=== PATIENT | female | born 1950 | race Caucasian/White ===

== ENCOUNTER 2025-01-24 17:45 | Inpatient (IN) | payer MEDICARE, MEDICAID ==
[~2025-01-24] VITALS: Ht 160 cm; Wt 69.3 kg
--- NOTE | 2025-01-24 18:36 | ED.PDOC ---
History of Present Illness HPI Comments 74-year-old female came to ER for generalized weakness. Patient denies any medical problems, admits that she has not been seeing any doctor at all. States at about 6am this morning, she started having generalized weakness, associated with bouts of nausea and vomiting, right-sided chest pains, right sided abdo lori pain, right-sided headaches, dizziness and shortness of breath. Blood pressure upon arrival was 87/60 mm Hg Chief Complaint: Weakness Time Seen by MD: 18:34 Reviewed Notes: Nurses Notes Allergies: Coded Allergies: NO KNOWN ALLERGIES (Unverified , 01/24/25) Information Source: Patient Mode of Arrival: Ambulatory Severity: Moderate Timing: Hours Duration: Since onset Prehospital treatment: None Review of Systems REVIEW OF SYSTEMS: No fever, no chills, or fatigue HEENT: No sore throat, no earache, no congestion, no neck pain. Cardiac: (+) chest pain. No palpitations. Lungs: (+) shortness of breath, no cough. GI: (+) nausea, (+) vomiting, no diarrhea, no constipation, (+) abdominal pain : No dysuria, frequency, or urgency. No hematuria. Musculoskeletal: No joint pain , no joint swelling, no extremity edema. Skin: No rash, no itching. Neuro: (+) headache, (+) dizziness, (+) weakness Vital Signs Vital Signs Date Time Temp Pulse Resp B/P (MAP) Pulse Ox O2 Delivery O2 Flow Rate FiO2 01/24/25 22:00 77 19 101/52 (68) 95 01/24/25 20:20 98.4 01/24/25 20:00 Room Air* 0 21 Physical Exam General: Awake, alert and oriented. No acute distress. Skin: Skin in warm, dry and intact. Appropriate color for ethnicity. Nailbeds pink with no cyanosis. HEENT: The head is normocephalic and atraumatic. Conjunctivae are clear without exudates or hemorrhage. Sclera is non-icteric. EOM are intact. No signs of nystagmus. Eyelids are normal in appearance without swelling or lesions. Oral mucosa is pink and moist Neck: The neck is supple with normal range of motion. No JVD. Cardiac: Heart rate rapid with a regular rhythm. No murmurs, gallops, or rubs are auscultated. Respiratory: No signs of respiratory distress. Lung sounds are clear in all lobes bilaterally without rales, ronchi, or wheezes. Abdominal: Abdomen is soft, non-tender without distention. Bowel sounds are present and normoactive in all four quadrants. Extremities: Upper and lower extremities are atraumatic in appearance without deformity or edema. Neurological: The patient is awake, alert and oriented to person, place, and time with normal speech. Speech is clear. There is no facial asymmetry. Normal gait. Normal strength and tone. Psychiatric: Appropriate mood and affect. Good judgement and insight. No visual or auditory hallucinations. 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 Was a procedure done?: No EKG EKG : Pulse Rate (adult): 180 Cardiac Rhythm: Afib Comments No STEMI Differential Dx Considerations may include: Anemia, electrolyte imbalance, hypotension, sepsis, AFib, coronary artery disease, CVA X-Ray, Labs, Meds, VS Vital Signs Date Time Temp Pulse Resp B/P (MAP) Pulse Ox O2 Delivery O2 Flow Rate FiO2 01/24/25 22:00 77 19 101/52 (68) 95 01/24/25 21:55 83 01/24/25 20:20 98.4 01/24/25 20:00 88 14 95 Room Air* 0 21 01/24/25 20:00 97.9 88 14 125/74 (91) 95 97.9 01/24/25 18:59 191 13 97 Room Air* 0 21 01/24/25 18:59 97.6 191 13 121/77 (92) 97 97.6 01/24/25 18:58 88 01/24/25 18:39 97.6 191 13 121/77 (92) 97 97.6 01/24/25 18:36 180 01/24/25 18:25 180 01/24/25 17:47 98.6 60 20 87/60 (69) 97 98.6 Lab Test 01/24/25 21:47 01/24/25 20:38 01/24/25 20:20 01/24/25 19:50 Range/Units Troponin I High Sensitivity 25 27 </=34 ng/L Influenza Type A Antigen Negative Negative Influenza Type B Antigen Negative Negative SARS-CoV-2 Antigen (Rapid) Negative NEGATIVE Lactic Acid Level 2.7 *H 0.4-2.0 mmol/L Triglycerides Level 70 < 150 mg/dL Cholesterol Level 193 < 200 mg/dL LDL Cholesterol 118 H < 100 mg/dL HDL Cholesterol 67 H 40-59 mg/dL Thyroid Stimulating Hormone (TSH) 1.03 0.55-4.78 uIU/mL Test 01/24/25 18:50 01/24/25 18:30 Range/Units White Blood Count 13.4 H 4.4-10.8 10^3/uL Red Blood Count 4.66 4.0-5.20 10^6/uL Hemoglobin 14.5 12.2-16.2 g/dL Hematocrit 43.4 36.0-46.0 % Mean Corpuscular Volume 93.2 80.0-100.0 fL Mean Corpuscular Hemoglobin 31.1 28.0-32.0 pg Mean Corpuscular Hemoglobin Concent 33.4 32.0-36.0 g/dL Red Cell Distribution Width 14.2 11.8-14.3 % Platelet Count 391 140-450 10^3/uL Mean Platelet Volume 8.4 6.9-10.8 fL Neutrophils (%) (Auto) 86.6 H 37.0-80.0 % Lymphocytes (%) (Auto) 8.9 L 10.0-50.0 % Monocytes (%) (Auto) 4.3 0.0-12.0 % Eosinophils (%) (Auto) 0.0 0.0-7.0 % Basophils (%) (Auto) 0.2 0.0-2.0 % Neutrophils # (Auto) 11.6 H 1.6-8.6 10 ^3/uL Lymphocytes # (Auto) 1.2 0.4-5.4 10 ^3/uL Monocytes # (Auto) 0.6 0-1.3 10 ^3/uL Eosinophils # (Auto) 0 0-0.8 10 ^3/uL Basophils # (Auto) 0 0-0.2 10 ^3/uL Nucleated Red Blood Cells 0.0 % Prothrombin Time 10.3 9.3-11.8 sec Prothrombin Time INR 0.97 0.9-1.15 Sodium Level 136 136-145 mmol/L Potassium Level 3.7 3.5-5.1 mmol/L Chloride Level 103 98-107 mmol/L Carbon Dioxide Level 19 L 20-31 mmol/L Anion Gap 14 5-15 Blood Urea Nitrogen 10 9-23 mg/dL Creatinine 0.82 0.550-1.02 mg/dL Glomerular Filtration Rate Calc 75 >90 mL/min BUN/Creatinine Ratio 12.2 10.0-20.0 Serum Glucose 148 H 74-106 mg/dL Lactic Acid Level 3.6 *H 0.4-2.0 mmol/L Calcium Level 9.8 8.7-10.4 mg/dL Total Bilirubin 0.8 0.2-1.0 mg/dL Aspartate Amino Transferase (AST) 19 13-40 U/L Alanine Aminotransferase (ALT) 20 7-40 U/L Alkaline Phosphatase 131 H 46-116 U/L Troponin I High Sensitivity 27 </=34 ng/L B-Type Natriuretic Peptide 628.74 0-100 pg/mL Total Protein 7.7 5.7-8.2 g/dL Albumin 5.1 H 3.2-4.8 g/dL Plasma/Serum Blood Alcohol < 3.0 <10 mg/dL Urine Color Colorless Yellow Urine Clarity Clear Clear Urine pH 6.0 5.0-9.0 Urine Specific [place] 1.005 1.001-1.035 Urine Protein Negative Negative Urine Ketones Trace Negative Urine Blood Negative Negative /uL Urine Nitrite Negative Negative Urine Bilirubin Negative Negative Urine Urobilinogen Normal Negative mg/dL Urine Leukocyte Esterase Negative Negative /uL Urine RBC None seen 0 - 4 /hpf Urine Microscopic WBC 2 0-5 /HPF Urine Squamous Epithelial Cells Few <5 /hpf Urine Bacteria None seen None Seen /hpf Urine Glucose Normal Normal mg/dL Urine Opiates Screen Neg NEGATIVE Urine Fentanyl Screen Neg NEGATIVE Urine Barbiturates Screen Neg NEGATIVE Urine Phencyclidine Screen Neg NEGATIVE Urine Amphetamines Screen Neg NEGATIVE Urine Benzodiazepines Screen Neg NEGATIVE Urine Cocaine Screen Neg NEGATIVE Urine Cannabinoids Screen Neg NEGATIVE Microbiology Date/Time Source Procedure Growth Status 01/24/25 20:20 Blood Blood Culture - Preliminary NO GROWTH AFTER 24 HOURS OF INCUBATION. Resulted 01/24/25 20:10 Blood Blood Culture - Preliminary NO GROWTH AFTER 24 HOURS OF INCUBATION. Resulted CHEST RADIOGRAPH Indication: hypoxia Technique: Single frontal view of the chest was obtained COMPARISON: None FINDINGS: Lines and Tubes: None Lungs: Clear Pleura: No effusion. No pneumothorax. Cardiomediastinal contours: Unremarkable Bones: Unremarkable IMPRESSION: No abnormality demonstrated. EXAM: CT HEAD WITHOUT CONTRAST INDICATION: ALOC TECHNIQUE: CT of the head without intravenous contrast. Radiation Dose Information: CT Dose: CTDI volume is 31.41 mGy. Dose-length product is 910.49 mGy*cm The dose indicators for CT are the volume Computed Tomography (CT) Dose Index (CTDIvol) and the Dose Length Product (DLP), and are measured in units of mGy and mGy-cm, respectively. These indicators are not patient dose, but values generated from the CT scanner acquisition factors. The report includes radiation exposure data for exposures received during this examination. COMPARISON: None FINDINGS: There is no evidence of acute intracranial hemorrhage, extra-axial collection, mass effect, midline shift, herniation or hydrocephalus. The ventricles, sulci and cisterns are age appropriate. The escobedo-white differentiation is intact. Patchy periventricular and subcortical white matter hypoattenuation is nonspecific but may be related to small vessel ischemic disease. The visualized paranasal sinuses and mastoid air cells are clear. The surrounding soft tissues and osseous structures are unremarkable. IMPRESSION: 1. No acute intracranial hemorrhage. 2. No CT findings of territorial ischemia. HS:Y Time of 1ST Reevaluation: 18:30 Reevaluation 1ST: Unchanged Patient Education/Counseling: Diagnosis, Treatment Family Education/Counseling: No Family Present Departure 1 Departure Time of Disposition: 19:30 Impression: Primary Impression: New onset a-fib Disposition: ADMITTED INPATIENT Condition: Stable Comments 74-year-old female who presents to the emergency department with chest pain. Patient was triaged found to be in AFib with RVR. She was placed on telemetry monitor, started on IV fluids and Cardizem. Heart rate converted to sinus rhythm with improved rate. However patient does not follow up with PCP, has unknown past medical history, unknown duration of patient's cardiac rhythm being in AFib . Additionally patient has elevated white blood cell count, elevated lactic acid. Unclear source. Antibiotics and IV fluids administered. Patient admitted for further treatment, evaluation and monitoring. Extensive evaluation was performed in attempt to identify or rule out: (See differential diagnosis section) The following tests were ordered, and results were reviewed by me and discussed with the patient: (See diagnostic results section) The following test were independently interpreted by me: EKG, chest x-ray I reviewed and agreed with the following test results read by other providers: Chest x-ray I reviewed the following notes from the pt's past medical encounters: (None available at this time) Additional information was gathered from interviewing the following independent historians: N/A Discussion of management or test interpretation with external physician/other qualified health child day care center worker: N/A Addressed an acute or chronic illness that poses a threat to life or bodily function: AFib with RVR, chest pain Decision regarding hospitalization or escalation of hospital level of care: Risk and benefits of admission for further treatment of patient's condition was considered. Due to patient's current clinical condition, high risk of decline and poor outcome if discharged and need for further inpatient management and monitoring, patient will be admitted to the hospital. Discussed with the patient Drug therapy requiring intensive monitoring for toxicity: IV Cardizem Parenteral controlled substances: N/A Decision regarding elective major surgery with identified patient or procedure risk factors: N/A Decision regarding emergency major surgery: N/A Decision not to resuscitate or to de-escalate care because of poor prognosis: N/A Diagnosis or treatment significantly limited by social determinants of health: N/A Critical Care Note Critical Care Time?: Yes (35 min-critical care time only) Critical care comment: Due to a high probability of clinically significant, life threatening deterioration, the patient required my highest level of preparedness to intervene emergently and I personally spent this critical care time directly and personally managing the patient. This critical care time included obtaining a history; examining the patient; pulse oximetry; ordering and review of studies; arranging urgent treatment with development of a management plan; evaluation of patient's response to treatment; frequent reassessment; and, discussions with other providers. This critical care time was performed to assess and manage the high probability of imminent, life-threatening deterioration that could result in multi-organ failure. It was exclusive of separately billable procedures and treating other patients and teaching time. Please see my other sections and the rest of the note for further information on patient assessment and treatment. Stability Stability form required: No Heart Score Heart Score: Heart Score Response (Comments) Value History Moderate Suspicious [address]-Deviation 2 Age >65 2 Risk Factors 1 or 2 risk factors 1 Troponin Normal limit 0 Total 6 I personally scribed for CIARRA LEDEZMA MD ([email or web address]) on 01/24/25 at 18:36. Electronically submitted by Vinay Magaña ([employer]). I personally scribed for CIARRA LEDEZMA MD ([email or web address]) on 01/24/25 at 21:27. Electronically submitted by Vinay Magaña ([employer]). CIARRA LEDEZMA MD Jan 24, 2025 18:36
[2025-01-24] MEDS: SODIUM CHLORIDE 0.9% 1,000 ML IV ONE ×3 (18:47→20:30)
[2025-01-24] MEDS: dilTIAZem 25 MG/5 ML VIAL IV ONE ×2 (18:47→18:54)
--- NOTE | 2025-01-24 18:58 | ECG ---
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
[2025-01-24 18:59] VITALS: PULSE 191; RESP 13; O2SAT 97
[2025-01-24 19:09] LABS: Basophils # (auto) 0 10 ^3/uL (0-0.2); Basophils % (auto) 0.2 % (0.0-2.0); Eosinophils # (auto) 0 10 ^3/uL (0-0.8); Hematocrit 43.4 % (36.0-46.0); Hemoglobin 14.5 g/dL (12.2-16.2); Lymphocytes # (auto) 1.2 10 ^3/uL (0.4-5.4); Lymphocytes % (auto) 8.9 % (10.0-50.0); Mean Corpuscular Hemoglobin 31.1 pg (28.0-32.0); Mean Corpuscular Hgb Conc. 33.4 g/dL (32.0-36.0); Mean Corpuscular Volume 93.2 fL (80.0-100.0); Monocytes # (auto) 0.6 10 ^3/uL (0-1.3); Monocytes % (auto) 4.3 % (0.0-12.0); Neutrophils # (auto) 11.6 10 ^3/uL (1.6-8.6); Neutrophils % (auto) 86.6 % (37.0-80.0); Platelet Count (auto) 391 10^3/uL (140-450); Red Blood Cells 4.66 10^6/uL (4.0-5.20); Red Cell Distribution Width 14.2 % (11.8-14.3); White Blood Cell 13.4 10^3/uL (4.4-10.8)
[2025-01-24 19:25] LABS: Alanine Aminotransferase 20 U/L (7-40); Anion Gap 14 (5-15); Aspartate Aminotransferase 19 U/L (13-40); BUN/Creatinine Ratio 12.2 (10.0-20.0); Bilirubin, Total 0.8 mg/dL (0.2-1.0); Blood Urea Nitrogen 10 mg/dL (9-23); Calcium 9.8 mg/dL (8.7-10.4); Chloride 103 mmol/L (98-107); INR 0.97 (0.9-1.15); Potassium 3.7 mmol/L (3.5-5.1); Prothrombin Time 10.3 sec (9.3-11.8); Total Protein 7.7 g/dL (5.7-8.2)
[2025-01-24 19:28] LABS: Albumin 5.1 g/dL (3.2-4.8); Alkaline Phosphatase 131 U/L (46-116); Carbon Dioxide 19 mmol/L (20-31); Glucose 148 mg/dL (74-106); Sodium 136 mmol/L (136-145)
[2025-01-24 19:35] LABS: Lactic Acid w/Reflex 3.6 mmol/L (0.4-2.0)
[2025-01-24 20:00] VITALS: PULSE 88; RESP 14; O2SAT 95
[2025-01-24 20:16] LABS: Urine Bacteria None Seen /hpf (None Seen)
[2025-01-24] MEDS: ACETAMINOPHEN 325 MG TAB PO ONE (20:20)
[2025-01-24] MEDS: ASPirin 81 mg TAB PO ONE (20:20)
[2025-01-24] MEDS: cefTRIAXone 1GM/50ML D5W 50 ML IV ONE (20:24)
[2025-01-24 20:40] LABS: Urine Blood Negative /uL (Negative); Urine Clarity Clear (Clear); Urine Color Colorless (Yellow); Urine Protein, UAD Negative (Negative); Urine Specific Gravity 1.005 (1.001-1.035); Urine Squamous Epithelial Cell FEW /hpf (<5); Urine Urobilinogen Normal (Negative); Urine WBC 2 /HPF (0-5)
[2025-01-24] MEDS: VANCOMYCIN 1GM/200ML PM 200 ML IV ONE (20:51)
[2025-01-24 20:56] LABS: Amphetamine Screen, Urine Neg (NEGATIVE); Barbiturate Scree,Urine Neg (NEGATIVE); Benzodiazephine Screen, Urine Neg (NEGATIVE); Cannabinoid Screen, Urine Neg (NEGATIVE); Cocaine Screen, Urine Neg (NEGATIVE); Opiate Scree,Urine Neg (NEGATIVE); Phencyclidine Screen, Urine Neg (NEGATIVE)
--- NOTE | 2025-01-24 21:15 | DVH ---
CHEST RADIOGRAPH Indication: hypoxia Technique: Single frontal view of the chest was obtained COMPARISON: None FINDINGS: Lines and Tubes: None Lungs: Clear Pleura: No effusion. No pneumothorax. Cardiomediastinal contours: Unremarkable Bones: Unremarkable IMPRESSION: No abnormality demonstrated.
--- NOTE | 2025-01-24 21:19 | DVH ---
EXAM: CT HEAD WITHOUT CONTRAST INDICATION: ALOC TECHNIQUE: CT of the head without intravenous contrast. Radiation Dose Information: CT Dose: CTDI volume is 31.41 mGy. Dose-length product is 910.49 mGy*cm The dose indicators for CT are the volume Computed Tomography (CT) Dose Index (CTDIvol) and the Dose Length Product (DLP), and are measured in units of mGy and mGy-cm, respectively. These indicators are not patient dose, but values generated from the CT scanner acquisition factors. The report includes radiation exposure data for exposures received during this examination. COMPARISON: None FINDINGS: There is no evidence of acute intracranial hemorrhage, extra-axial collection, mass effect, midline s hift, herniation or hydrocephalus. The ventricles, sulci and cisterns are age appropriate. The escobedo-white differentiation is intact. Patchy periventricular and subcortical white matter hypoattenuation is nonspecific but may be related to small vessel ischemic disease. The visualized paranasal sinuses and mastoid air cells are clear. The surrounding soft tissues and osseous structures are unremarkable. IMPRESSION: 1. No acute intracranial hemorrhage. 2. No CT findings of territorial ischemia. HS:Y
[2025-01-24 22:24] LABS: COVID19 ANTIGEN SOFIA FIA NEGATIVE (NEGATIVE); Rapid Influenza A Negative (Negative); Rapid Influenza B Negative (Negative)
[2025-01-24] MEDS ORDERED: ONDANSETRON HCL 4 MG/2 ML VIAL IV PRN (23:30)
[2025-01-24] MEDS ORDERED: NITROGLYCERIN 0.4 MG SL TAB SL PRN (23:30)
[2025-01-24] MEDS ORDERED: MORPHINE SULFATE INJ 2 MG/ml SYRG IV PRN (23:30)
--- NOTE | 2025-01-24 23:33 | DVHHP2 ---
History of Present Illness Reason for Visit: Generalized weakness History of Present Illness 74-year-old female presents for evaluation of generalized weakness. Patient reports a one day history of fatigue and generalized weakness with associated palpitations intermittently, substernal chest pressure, dizziness and shortness for breath. On arrival to the emergency department patient was noted to be in AFib with RVR with a heart rate in the 170s. Patient converted to normal sinus rhythm after administration of Cardizem IV. Denies any medical problems. Patient has not been seen by primary care provider. Past Medical History Denies Past Surgical History Bladder prolapse Family History Noncontributory Smoke: No ALCOHOL: occassional Drugs: None Review of Systems Review of Systems Review of systems are currently negative otherwise addressed in HPI. Allergies: Coded Allergies: NO KNOWN ALLERGIES (Unverified , 01/24/25) Medications Current Medications Medications Dose Ordered Sig/Mat Route Start Time Stop Time Status Last Admin Dose Admin Aspirin 81 mg DAILY PO 01/25/25 10:00 UNV Ceftriaxone Sodium 50 ml @ 100 mls/hr DAILY@09 IV 01/25/25 09:00 UNV Metoprolol Succinate 12.5 mg DAILY PO 01/25/25 10:00 UNV Ondansetron HCl 4 mg Q4HP PRN IV 01/24/25 23:30 UNV Enoxaparin Sodium 40 mg DAILY SC 01/25/25 10:00 UNV Acetaminophen 650 mg Q6HP PRN PO 01/24/25 23:30 UNV Nitroglycerin 0.4 mg Q5MINP PRN SL 01/24/25 23:30 UNV Morphine Sulfate 2 mg Q30M PRN IV 01/24/25 23:30 UNV Exam Vital Signs Vital Signs Date Time Temp Pulse Resp B/P (MAP) Pulse Ox O2 Delivery O2 Flow Rate FiO2 01/24/25 22:00 77 19 101/52 (68) 95 01/24/25 20:20 98.4 01/24/25 20:00 Room Air* 0 21 Exam Gen: 74-year-old female in mild distress Skin: Warm, dry, normal color and texture, no rash. HEENT: Normocephalic atraumatic, mucous membranes moist and pink. Neck: Cervical and supraclavicular nodes normal without enlargement, trachea is midline, thyroid gland is normal without masses. Pulmonary: Clear to auscultation and percussion bilaterally. Cardiac: Irregular rhythm Abdomen: Soft, nontender, nondistended, bowel sounds present all 4 quadrants, no guarding, no rigidity, no organomegaly. Extremities: No cyanosis, clubbing, no edema Neuro: Cranial nerves II through XII grossly intact, normal affect and speech, no focal motor deficits. Labs/Xrays ORDERING PHYSICIAN: CIARRA LEDEZMA MD PROCEDURE(s): HWOCT - HEAD WITHOUT CONTRAST REASON: ALOC ORDER NUMBER(s): [id number], ACCESSION NUMBER(s): [id number] EXAM: CT HEAD WITHOUT CONTRAST INDICATION: ALOC TECHNIQUE: CT of the head without intravenous contrast. Radiation Dose Information: CT Dose: CTDI volume is 31.41 mGy. Dose-length product is 910.49 mGy*cm The dose indicators for CT are the volume Computed Tomography (CT) Dose Index (CTDIvol) and the Dose Length Product (DLP), and are measured in units of mGy and mGy-cm, respectively. These indicators are not patient dose, but values generated from the CT scanner acquisition factors. The report includes radiation exposure data for exposures received during this examination. COMPARISON: None FINDINGS: There is no evidence of acute intracranial hemorrhage, extra-axial collection, mass effect, midline shift, herniation or hydrocephalus. The ventricles, sulci and cisterns are age appropriate. The escobedo-white differentiation is intact. Patchy periventricular and subcortical white matter hypoattenuation is nonspecific but may be related to small vessel ischemic disease. The visualized paranasal sinuses and mastoid air cells are clear. The surrounding soft tissues and osseous structures are unremarkable. IMPRESSION: 1. No acute intracranial hemorrhage. 2. No CT findings of territorial ischemia. HS:Y RING PHYSICIAN: CIARRA LEDEZMA MD PROCEDURE(s): CXR1 - CHEST XRAY 1 VIEW REASON: hypoxia ORDER NUMBER(s): [id number], ACCESSION NUMBER(s): [id number] CHEST RADIOGRAPH Indication: hypoxia Technique: Single frontal view of the chest was obtained COMPARISON: None FINDINGS: Lines and Tubes: None Lungs: Clear Pleura: No effusion. No pneumothorax. Cardiomediastinal contours: Unremarkable Bones: Unremarkable IMPRESSION: No abnormality demonstrated. Labs Test 01/24/25 21:47 01/24/25 20:38 01/24/25 20:20 01/24/25 19:50 Range/Units Troponin I High Sensitivity 25 </=34 ng/L Influenza Type A Antigen Negative Negative Influenza Type B Antigen Negative Negative SARS-CoV-2 Antigen (Rapid) Negative NEGATIVE Lactic Acid Level 2.7 *H 0.4-2.0 mmol/L Test 01/24/25 18:50 01/24/25 18:30 Range/Units White Blood Count 13.4 H 4.4-10.8 10^3/uL Red Blood Count 4.66 4.0-5.20 10^6/uL Hemoglobin 14.5 12.2-16.2 g/dL Hematocrit 43.4 36.0-46.0 % Mean Corpuscular Volume 93.2 80.0-100.0 fL Mean Corpuscular Hemoglobin 31.1 28.0-32.0 pg Mean Corpuscular Hemoglobin Concent 33.4 32.0-36.0 g/dL Red Cell Distribution Width 14.2 11.8-14.3 % Platelet Count 391 140-450 10^3/uL Mean Platelet Volume 8.4 6.9-10.8 fL Neutrophils (%) (Auto) 86.6 H 37.0-80.0 % Lymphocytes (%) (Auto) 8.9 L 10.0-50.0 % Monocytes (%) (Auto) 4.3 0.0-12.0 % Eosinophils (%) (Auto) 0.0 0.0-7.0 % Basophils (%) (Auto) 0.2 0.0-2.0 % Neutrophils # (Auto) 11.6 H 1.6-8.6 10 ^3/uL Lymphocytes # (Auto) 1.2 0.4-5.4 10 ^3/uL Monocytes # (Auto) 0.6 0-1.3 10 ^3/uL Eosinophils # (Auto) 0 0-0.8 10 ^3/uL Basophils # (Auto) 0 0-0.2 10 ^3/uL Nucleated Red Blood Cells 0.0 % Prothrombin Time 10.3 9.3-11.8 sec Prothrombin Time INR 0.97 0.9-1.15 Sodium Level 136 136-145 mmol/L Potassium Level 3.7 3.5-5.1 mmol/L Chloride Level 103 98-107 mmol/L Carbon Dioxide Level 19 L 20-31 mmol/L Anion Gap 14 5-15 Blood Urea Nitrogen 10 9-23 mg/dL Creatinine 0.82 0.550-1.02 mg/dL Glomerular Filtration Rate Calc 75 >90 mL/min BUN/Creatinine Ratio 12.2 10.0-20.0 Serum Glucose 148 H 74-106 mg/dL Calcium Level 9.8 8.7-10.4 mg/dL Total Bilirubin 0.8 0.2-1.0 mg/dL Aspartate Amino Transferase (AST) 19 13-40 U/L Alanine Aminotransferase (ALT) 20 7-40 U/L Alkaline Phosphatase 131 H 46-116 U/L B-Type Natriuretic Peptide 628.74 0-100 pg/mL Total Protein 7.7 5.7-8.2 g/dL Albumin 5.1 H 3.2-4.8 g/dL Plasma/Serum Blood Alcohol < 3.0 <10 mg/dL Urine Color Colorless Yellow Urine Clarity Clear Clear Urine pH 6.0 5.0-9.0 Urine Specific [place] 1.005 1.001-1.035 Urine Protein Negative Negative Urine Ketones Trace Negative Urine Blood Negative Negative /uL Urine Nitrite Negative Negative Urine Bilirubin Negative Negative Urine Urobilinogen Normal Negative mg/dL Urine Leukocyte Esterase Negative Negative /uL Urine RBC None seen 0 - 4 /hpf Urine Microscopic WBC 2 0-5 /HPF Urine Squamous Epithelial Cells Few <5 /hpf Urine Bacteria None seen None Seen /hpf Urine Glucose Normal Normal mg/dL Urine Opiates Screen Neg NEGATIVE Urine Fentanyl Screen Neg NEGATIVE Urine Barbiturates Screen Neg NEGATIVE Urine Phencyclidine Screen Neg NEGATIVE Urine Amphetamines Screen Neg NEGATIVE Urine Benzodiazepines Screen Neg NEGATIVE Urine Cocaine Screen Neg NEGATIVE Urine Cannabinoids Screen Neg NEGATIVE Assessment/Plan Assessment/Plan Assessment AFib with RVR Lactic acidosis Leukocytosis Plan Admit the patient to telemetry to the hospitalist Plan cultures pending Rocephin Cardiology consultation Echocardiogram pending Continue treatment per orders. Plan discussed with: Patient My Orders Orders - ROJAS NGUYỄN AGACNP Procedure Category Date Status Time Blood Culture GENARO 01/24/25 Logged 23:16 * Cardiology Consult CONS 01/24/25 Transmitted 23:16 Aspirin Tablet PHA 4/11/25 Logged 10:00 Thyroid Stimulating LAB 01/24/25 In Process Hormone 23:16 Lipid Panel LAB 01/24/25 In Process 23:16 Ceftriaxone 1gm/50ml PHA 01/25/25 Logged D5w (Rocephin) 09:00 Metoprolol Xl PHA 01/25/25 Logged Succinate (Toprol Xl) 10:00 Admit ADMIT 01/24/25 Transmitted 23:16 Ondansetron Hcl PHA 01/24/25 Logged (Zofran) 23:30 Enoxaparin Sodium PHA 01/25/25 Logged (Lovenox) 10:00 Cardiac DIET 01/25/25 Transmitted Diet-2gna,Lofat,Lochol Breakfast Echo 2d Mode Cardiac US 01/24/25 Logged DOP 23:16 Condition: Fair AB 01/24/25 In Process 23:16 Acetaminophen Tablet PHA 01/24/25 Logged (Tylenol Tablet) 23:30 Bedrest With Bathroom AB 01/24/25 In Process Privileg 23:16 Nitroglycerin [facility] 01/24/25 Logged Sublingual (Ntrostat 23:30 Morphine Sulfate PHA 01/24/25 Logged Injection 23:30 Stat Ekg For Chest [facility] 01/24/25 In Process Pain 23:16 Notify Md Of Changes AB 01/24/25 In Process From Base 23:16 Financial Analysis Consultant For AB 01/24/25 In Process 24 Hours 23:16 Emergency Dysrhythmia AB 01/24/25 In Process Protocol 23:16 Rhythm Strips Once [facility] 01/24/25 In Process Every Shift 23:16 Oxygen By Nasal RT 01/24/25 Transmitted Cannula 23:16 Basic Metabolic Panel LAB 01/25/25 Verified 04:00 Date of Service: Jan 24, 2025 Billing Provider: ROJAS NGUYỄN Common Visit Codes: [id number] INP/OBS CARE (HIGH) ROJAS NGUYỄN Jan 24, 2025 23:33
[2025-01-24 23:53] LABS: Triglycerides 70 mg/dL (< 150)
[2025-01-24 23:55] LABS: Cholesterol 193 mg/dL (< 200)
[2025-01-24 23:58] LABS: HDL Cholesterol 67 mg/dL (40-59); LDL Cholesterol 118 mg/dL (< 100)
[2025-01-25] VITALS (7 sets, daily range): BP systolic 117–134; BP diastolic 66–91; PULSE 70–79; RESP 10–16; TEMP 97.7–98.6; O2SAT 93–97
--- NOTE | 2025-01-25 05:39 | ECG ---
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
[2025-01-25 06:28] LABS: Sodium 143 mmol/L (136-145)
[2025-01-25 06:29] LABS: Anion Gap 11 (5-15)
[2025-01-25 06:33] LABS: Carbon Dioxide 20 mmol/L (20-31); Chloride 112 mmol/L (98-107); Potassium 3.1 mmol/L (3.5-5.1)
[2025-01-25 06:34] LABS: BUN/Creatinine Ratio 16.9 (10.0-20.0); Blood Urea Nitrogen 11 mg/dL (9-23)
[2025-01-25 06:41] LABS: Glucose 114 mg/dL (74-106)
[2025-01-25 06:55] LABS: Basophils # (auto) 0.1 10 ^3/uL (0-0.2); Basophils % (auto) 0.9 % (0.0-2.0); Eosinophils # (auto) 0.2 10 ^3/uL (0-0.8); Eosinophils % (auto) 1.8 % (0.0-7.0); Hematocrit 35.1 % (36.0-46.0); Hemoglobin 11.8 g/dL (12.2-16.2); Lymphocytes # (auto) 1.9 10 ^3/uL (0.4-5.4); Lymphocytes % (auto) 22.9 % (10.0-50.0); Mean Corpuscular Hemoglobin 31.4 pg (28.0-32.0); Mean Corpuscular Hgb Conc. 33.7 g/dL (32.0-36.0); Mean Corpuscular Volume 93.2 fL (80.0-100.0); Monocytes # (auto) 0.6 10 ^3/uL (0-1.3); Monocytes % (auto) 7.1 % (0.0-12.0); Neutrophils # (auto) 5.7 10 ^3/uL (1.6-8.6); Neutrophils % (auto) 67.3 % (37.0-80.0); Nucleated Red Blood Cells % 0.1 %; Platelet Count (auto) 294 10^3/uL (140-450); Red Blood Cells 3.77 10^6/uL (4.0-5.20); Red Cell Distribution Width 14.4 % (11.8-14.3); White Blood Cell 8.4 10^3/uL (4.4-10.8)
[2025-01-25] MEDS: cefTRIAXone 1GM/50ML D5W 50 ML IV SCH (10:25)
[2025-01-25] MEDS: ASPirin 81 mg TAB PO SCH (10:26)
[2025-01-25] MEDS: ENOXAPARIN SOD 40 MG/0.4 ML SYRINGE SC SCH (10:26)
[2025-01-25] MEDS: METOPROLOL SUCCINATE XL 50 MG TAB PO SCH (10:28)
[2025-01-25] MEDS: ACETAMINOPHEN 325 MG TAB PO PRN (10:38)
--- NOTE | 2025-01-25 10:53 | DVHINCON2 ---
TEJAL THOMPSON [facility] 01/25/25 1053: Date Seen: Jan 25, 2025 Referring Physician RHEA Horn Reason for Consultation New onset AFib History of Present Illness This is a 74-year-old female patient who presents to the emergency room with chief complaint of generalized weakness, right-sided body pain, and nausea and vomiting since 6:00 a.m. on day of emergency room arrival. Upon emergency room arrival, a twelve lead electrocardiogram was done and revealed atrial fibrillation with rapid ventricular rate. The patient was given diltiazem 15 mg IV once in the emergency room in which she converted back into a normal sinus rhythm. At time of assessment, the patient remains in normal sinus rhythm. The patient denies any previous medical history. She also reports that she does not regularly see a primary care physician. Past Medical History Denies any past medical history Past Surgical History Bladder prolapse repair Family History Family history reviewed. Social History Denies the use of tobacco, alcohol or illicit drugs. Allergies: Coded Allergies: NO KNOWN ALLERGIES (Unverified , 01/24/25) Home Meds Active Scripts Apixaban Base (ELIQUIS) 5 Mg Tab, 5 MG PO BID for 30 Days, #60 TAB 5 Refills Prov:EDVIN MARIEE MD 01/26/25 Amiodarone HCl (Amiodarone HCl) 200 Mg Tab, 200 MG PO Q12HR, #60 TAB Prov:EDVIN MARIEE MD 01/26/25 Metoprolol Succinate (Toprol Xl) 25 Mg Tab, 1 TAB PO DAILY, #30 TAB 5 Refills Prov:EDVIN MARIEE MD 01/26/25 Home Meds Denies taking any prescribed medications Current Medications Current Medications Medications (Trade) Dose Ordered Sig/Mat Route PRN Reason Start Time Stop Time Status Last Admin Aspirin 81 mg DAILY PO 01/25/25 10:00 01/25/25 10:26 Ceftriaxone Sodium 50 ml @ 100 mls/hr DAILY@09 IV 01/25/25 09:00 01/25/25 10:25 Metoprolol Succinate (Toprol Xl) 12.5 mg DAILY PO 01/25/25 10:00 01/25/25 10:28 Ondansetron HCl (Zofran) 4 mg Q4HP PRN IV NAUSEA / VOMITING 01/24/25 23:30 Enoxaparin Sodium (Lovenox) 40 mg DAILY SC 01/25/25 10:00 01/25/25 10:26 Acetaminophen (Tylenol Tablet) 650 mg Q6HP PRN PO PAIN SCALE 1-3 OR TEMP>100.4 01/24/25 23:30 01/25/25 10:38 Nitroglycerin (Ntrostat Sublingual) 0.4 mg Q5MINP PRN SL FOR CHEST PAIN 01/24/25 23:30 Morphine Sulfate 2 mg Q30M PRN IV FOR CHEST PAIN 01/24/25 23:30 Review of Systems Constitutional: Generalized weakness Ears, Nose, & Throat: No symptom reported Eyes: No symptom reported Neurological: No symptoms reported Pulmonary/Respiratory: No symptoms reported Cardiovascular: No symptom reported Gastrointestinal: No symptom reported Genitourinary: No symptom reported Musculoskeletal: Right-sided body pain Skin: No symptom reported Psychiatric: No symptom reported Endocrine: No symptom reported Hematologic/Lymphatic: No symptom reported Vital Signs Vital Signs Date Time Temp Pulse Resp B/P (MAP) Pulse Ox O2 Delivery O2 Flow Rate FiO2 01/25/25 10:28 97 134/91 01/25/25 09:00 97.9 16 97 97.9 01/25/25 07:30 Room Air* 0 21 Physical Exam General Appearance: Cooperative. Well-developed. Well-nourished. No acute distress. Pulmonary/Respiratory: Clear, bilateral breaths sounds. Cardiovascular/Chest: Regular rate and rhythm. Peripheral Pulses: 2+ Radial (R). 2+ Radial (L). 2+ Pedal (R). 2+ Pedal (L) Abdominal Exam: Normal bowel sounds. Ankle Exam: Negative ankle edema Lower extremities: Negative lower extremity edema Neuro/Mental Status: A/OX4, coherent. Thoughts/Psych: Normal thought pattern. Appropriate mood and affect. Good judgment and insight. Appearance: No acute distress. Skin Exam: Normal inspection. Normal color. Warm and dry. Labs/Diagnostic Data Labs Test 01/25/25 05:30 01/24/25 21:47 01/24/25 20:38 01/24/25 20:20 Range/Units White Blood Count 8.4 # 4.4-10.8 10^3/uL Red Blood Count 3.77 L 4.0-5.20 10^6/uL Hemoglobin 11.8 #L 12.2-16.2 g/dL Hematocrit 35.1 #L 36.0-46.0 % Mean Corpuscular Volume 93.2 80.0-100.0 fL Mean Corpuscular Hemoglobin 31.4 28.0-32.0 pg Mean Corpuscular Hemoglobin Concent 33.7 32.0-36.0 g/dL Red Cell Distribution Width 14.4 H 11.8-14.3 % Platelet Count 294 140-450 10^3/uL Mean Platelet Volume 8.9 6.9-10.8 fL Neutrophils (%) (Auto) 67.3 37.0-80.0 % Lymphocytes (%) (Auto) 22.9 10.0-50.0 % Monocytes (%) (Auto) 7.1 0.0-12.0 % Eosinophils (%) (Auto) 1.8 0.0-7.0 % Basophils (%) (Auto) 0.9 0.0-2.0 % Neutrophils # (Auto) 5.7 1.6-8.6 10 ^3/uL Lymphocytes # (Auto) 1.9 0.4-5.4 10 ^3/uL Monocytes # (Auto) 0.6 0-1.3 10 ^3/uL Eosinophils # (Auto) 0.2 0-0.8 10 ^3/uL Basophils # (Auto) 0.1 0-0.2 10 ^3/uL Nucleated Red Blood Cells 0.1 % Sodium Level 143 # 136-145 mmol/L Potassium Level 3.1 L 3.5-5.1 mmol/L Chloride Level 112 H 98-107 mmol/L Carbon Dioxide Level 20 20-31 mmol/L Anion Gap 11 5-15 Blood Urea Nitrogen 11 9-23 mg/dL Creatinine 0.65 0.550-1.02 mg/dL Glomerular Filtration Rate Calc 93 >90 mL/min BUN/Creatinine Ratio 16.9 10.0-20.0 Serum Glucose 114 H 74-106 mg/dL Calcium Level 9.0 8.7-10.4 mg/dL Troponin I High Sensitivity 25 </=34 ng/L Influenza Type A Antigen Negative Negative Influenza Type B Antigen Negative Negative SARS-CoV-2 Antigen (Rapid) Negative NEGATIVE Lactic Acid Level 2.7 *H 0.4-2.0 mmol/L Test 01/24/25 19:50 01/24/25 18:50 01/24/25 18:30 Range/Units Triglycerides Level 70 < 150 mg/dL Cholesterol Level 193 < 200 mg/dL LDL Cholesterol 118 H < 100 mg/dL HDL Cholesterol 67 H 40-59 mg/dL Thyroid Stimulating Hormone (TSH) 1.03 0.55-4.78 uIU/mL Prothrombin Time 10.3 9.3-11.8 sec Prothrombin Time INR 0.97 0.9-1.15 Total Bilirubin 0.8 0.2-1.0 mg/dL Aspartate Amino Transferase (AST) 19 13-40 U/L Alanine Aminotransferase (ALT) 20 7-40 U/L Alkaline Phosphatase 131 H 46-116 U/L B-Type Natriuretic Peptide 628.74 0-100 pg/mL Total Protein 7.7 5.7-8.2 g/dL Albumin 5.1 H 3.2-4.8 g/dL Plasma/Serum Blood Alcohol < 3.0 <10 mg/dL Urine Color Colorless Yellow Urine Clarity Clear Clear Urine pH 6.0 5.0-9.0 Urine Specific [place] 1.005 1.001-1.035 Urine Protein Negative Negative Urine Ketones Trace Negative Urine Blood Negative Negative /uL Urine Nitrite Negative Negative Urine Bilirubin Negative Negative Urine Urobilinogen Normal Negative mg/dL Urine Leukocyte Esterase Negative Negative /uL Urine RBC None seen 0 - 4 /hpf Urine Microscopic WBC 2 0-5 /HPF Urine Squamous Epithelial Cells Few <5 /hpf Urine Bacteria None seen None Seen /hpf Urine Glucose Normal Normal mg/dL Urine Opiates Screen Neg NEGATIVE Urine Fentanyl Screen Neg NEGATIVE Urine Barbiturates Screen Neg NEGATIVE Urine Phencyclidine Screen Neg NEGATIVE Urine Amphetamines Screen Neg NEGATIVE Urine Benzodiazepines Screen Neg NEGATIVE Urine Cocaine Screen Neg NEGATIVE Urine Cannabinoids Screen Neg NEGATIVE Assessment Atrial fibrillation with rapid ventricular rate, new onset, now normal sinus rhythm Hyperlipidemia, newly diagnosed Sepsis Hypokalemia Plan/Recommendation We will continue with the following plan/recommendations (Dr. Andrews): * Transthoracic echocardiogram reveals EF 65% * Normal function can not exclude small outpouching or aneurysm of RV * [id number] VASc score: 2 points, HAS-BLED: 1 point * Beta-kraig for rate control * Therapeutic Lovenox, transition to NOAC prior to discharge * Antiarrhythmic agent amiodarone * Monitor and replete electrolytes as needed, keep potassium greater than four and magnesium greater than two * Close Cardiac surveillance Patient seen and examined at bedside with . There is no further inpatient cardiac workup indicated at this time. Patient was educated to follow up with flake miller helper in the outpatient setting post discharge. Thank you for allowing us to care for this patient. Please call with any questions or concerns. Critical care time spent: 43 minutes This medical document was created using an electronic medical record system with voice recognition software and computerized dictation system. Although this do cument has been carefully reviewed, there might still be some phonetic and typographical errors. Occasional wrong-word or ``sound-alike substitutions may have occurred due to the inherent limitations of voice recognition software. These areas are purely typographical due to imperfections of the software programs and do not reflect any compromise in the patient's medical care. Please read the chart carefully and recognize, using context, where these substitutions have occurred. Plan discussed with: Patient NYHA Physical activity limitations: NA Date of Service: Jan 25, 2025 Billing Provider: TEJAL THOMPSON Cardiology Common Codes: 90188-YCOGISD INP/OBS CARE (High) Cardiology Consultation Codes: [id number] CONSULT <45MIN ALVIN ANDREWS MD 01/26/25 1246: Allergies: Coded Allergies: NO KNOWN ALLERGIES (Unverified , 01/24/25) Home Meds Active Scripts Apixaban Base (ELIQUIS) 5 Mg Tab, 5 MG PO BID for 30 Days, #60 TAB 5 Refills Prov:EDVIN MARIEE MD 01/26/25 Amiodarone HCl (Amiodarone HCl) 200 Mg Tab, 200 MG PO Q12HR, #60 TAB Prov:EDVNI MARIEE MD 01/26/25 Metoprolol Succinate (Toprol Xl) 25 Mg Tab, 1 TAB PO DAILY, #30 TAB 5 Refills Prov:EDVIN MARIEE MD 01/26/25 Plan/Recommendation PT SEEN WITH CV FASHION ARTIST AGREE WITH FASHION ARTIST ASSESSMENT AND PLAN PERSONALLY DISCUSSED WITH PATIENT afib is sr now fu echo start doac amio/ bb fu with me 2 weeks TEJAL THOMPSON Jan 25, 2025 10:53 ALVIN ANDREWS MD Jan 26, 2025 12:46
--- NOTE | 2025-01-25 12:24 | DVHPN2 ---
Subjective The patient is seen and examined at bedside. Still have some heart palpitation. Reviewed: Care Plan, H&P, Labs, Medications, Previous Orders, Radiology Changes from previous H/P or p: No Changes Objective Vitals Vital Signs Date Time Temp Pulse Resp B/P (MAP) Pulse Ox O2 Delivery O2 Flow Rate FiO2 01/25/25 10:28 97 134/91 01/25/25 09:00 97.9 16 97 97.9 01/25/25 07:30 Room Air* 0 21 Intake/Output Intake and Output 01/25/25 07:00 Intake Total 2250 ml Balance 2250 ml Intake IV Total 2250 ml General Appearance: Alert, Oriented X3, Cooperative, No acute distress HEENT: Atraumatic, PERRLA, EOMI, Mucous membr. moist/pink Neck: Supple Lungs: Clear to auscultation, Normal air movement Cardiovascular: Regular rate, Normal S1, Normal S2, No murmurs, Gallops, Rubs Abdomen: Normal bowel sounds, Soft, No tenderness Neuro: Cranial nerves 3-12 NL Psych/Mental Status: Mental status NL Medications Current Medications Medications Dose Ordered Sig/Mat Route Start Time Stop Time Status Last Admin Dose Admin Aspirin 81 mg DAILY PO 01/25/25 10:00 01/25/25 10:26 81 MG Ceftriaxone Sodium 50 ml @ 100 mls/hr DAILY@09 IV 01/25/25 09:00 01/25/25 10:25 100 MLS/HR Metoprolol Succinate 12.5 mg DAILY PO 01/25/25 10:00 01/25/25 10:28 12.5 MG Ondansetron HCl 4 mg Q4HP PRN IV 01/24/25 23:30 Enoxaparin Sodium 40 mg DAILY SC 01/25/25 10:00 01/25/25 10:26 40 MG Acetaminophen 650 mg Q6HP PRN PO 01/24/25 23:30 01/25/25 10:38 650 MG Nitroglycerin 0.4 mg Q5MINP PRN SL 01/24/25 23:30 Morphine Sulfate 2 mg Q30M PRN IV 01/24/25 23:30 Laboratory Results Laboratory Tests 01/25/25 05:30 Chemistry Test 01/24/25 18:50 01/25/25 05:30 Albumin 5.1 g/dL (3.2-4.8) H Calcium Level 9.8 mg/dL (8.7-10.4) 9.0 mg/dL (8.7-10.4) Total Protein 7.7 g/dL (5.7-8.2) Coagulation Test 01/24/25 18:50 Prothrombin Time 10.3 sec (9.3-11.8) Prothrombin Time INR 0.97 (0.9-1.15) Lipid panel Test 01/24/25 19:50 Cholesterol Level 193 mg/dL (< 200) HDL Cholesterol 67 mg/dL (40-59) H Triglycerides Level 70 mg/dL (< 150) Cardiac Markers Test 01/24/25 18:50 B-Type Natriuretic Peptide 628.74 pg/mL (0-100) LFT Test 01/24/25 18:50 Alanine Aminotransferase (ALT) 20 U/L (7-40) Alkaline Phosphatase 131 U/L (46-116) H Aspartate Amino Transferase (AST) 19 U/L (13-40) Total Bilirubin 0.8 mg/dL (0.2-1.0) HgA1c, TSH Test 01/24/25 19:50 Thyroid Stimulating Hormone (TSH) 1.03 uIU/mL (0.55-4.78) Urinalysis Test 01/24/25 18:30 Urine Color Colorless (Yellow) Urine Clarity Clear (Clear) Urine pH 6.0 (5.0-9.0) Urine Specific [place] 1.005 (1.001-1.035) Urine Protein Negative (Negative) Urine Ketones Trace (Negative) Urine Blood Negative /uL (Negative) Urine Nitrite Negative (Negative) Urine Bilirubin Negative (Negative) Urine Urobilinogen Normal mg/dL (Negative) Urine Leukocyte Esterase Negative /uL (Negative) Urine RBC None seen /hpf (0 - 4) Urine Microscopic WBC 2 /HPF (0-5) Urine Squamous Epithelial Cells Few /hpf (<5) Urine Bacteria None seen /hpf (None Seen) Urine Glucose Normal mg/dL (Normal) Labs and/or images reviewed: Labs reviewed by me Assessment/Plan Assessment/Plan AFib with RVR Lactic acidosis Leukocytosis Continuing current management. Continuing with amiodarone drip. Appreciate c ardiologist's input. Continuing Rocephin IV p.r.n. for empirically treat leukocytosis and elevation of lactic acid. We will follow up with blood culture. This medical document was created using an electronic medical record system with M*M flurency direct computerized dictation system. Although this document has been carefully reviewed, there may still be some phonetic and typographical errors. These areas are purely typographical due to imperfections of the software programs, and do not reflect any compromise in the patient's medical care. Plan discussed with: Patient Date of Service: Jan 25, 2025 Billing Provider: EDVIN MARIEE MD Common Visit Codes: [id number] INP/OBS CARE(HIGH) EDVIN MARIEE MD Jan 25, 2025 12:24
--- NOTE | 2025-01-25 15:06 | ECG ---
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
[2025-01-25] MEDS: POTASSIUM CHL 20 Meq TABLET PO ONE (15:45)
--- NOTE | 2025-01-25 16:21 | DVHSR ---
APPROVED REPORT EXAM: Two-dimensional and M-mode echocardiogram with Doppler and color Doppler. Blood Pressure: 127/70 mmHg INDICATION afib RISK FACTORS Height: 5'3, Weight: 127 DIMENSIONS LVDd5.1 (3.8-5.7cm)LA (2D)4.3 (1.9-4.0cm)Aortic Root3.1 (2.0-3.7cm) LVDs3.8 (2.5-4.0cm)LA (MM) (1.9-4.0cm)Aortic Cusp Exc1.7 (1.5-2.0cm) EF (%) 55.0 (55-70%)Rt. Atrium2.7 (1.9-4.0cm)Asc. Aorta3.5 cm IVSd0.8 (0.7-1.1cm)RV (D)3.0 (1.8-2.4cm) PWd0.9 (0.7-1.1cm) Mitral Valve MitralMitral Stenosis E wave0.63m/sMV Mean GR.mmHg A wave0.62m/sMV Peak GR.54mmHg E/A ratio1.02D MVAcm2 DECEL [id number] 1/2 Timems Aortic Valve Aortic ValveAortic Stenosis V10.94m/Shonda Mean GR.4mmHg V21.36m/Shonda Peak GR.7mmHg LVOT Diameter2.0 (1.8-2.4cm)Doppler AVA2.17cm2 Pulmonic Valve V20.89m/s Tricuspid Valve TR Velocity2.15m/s [id number] Conclusion lvef 65% RV, normal function cannot exculde small outpouching or aneurysm of RV? seen in RV inflow view left atirum enlarged mild no severe valve abnormalities noted trace pericardial effusion noted
[2025-01-25 18:33] LABS: Anion Gap 8 (5-15); Carbon Dioxide 23 mmol/L (20-31); Potassium 4.4 mmol/L (3.5-5.1); Sodium 142 mmol/L (136-145)
[2025-01-25 18:34] LABS: Calcium 9.2 mg/dL (8.7-10.4)
[2025-01-25 18:39] LABS: BUN/Creatinine Ratio 26.7 (10.0-20.0); Blood Urea Nitrogen 16 mg/dL (9-23); Chloride 111 mmol/L (98-107); Glucose 102 mg/dL (74-106)
[2025-01-25] MEDS: ENOXAPARIN SOD 80 MG/0.8ML SYRINGE SC SCH (21:26)
[2025-01-25] MEDS: AMIODARONE HCL 200 MG TAB PO SCH (21:26)
[2025-01-26 01:00] VITALS: BP 133/85; PULSE 66; RESP 16; TEMP 98.5; O2SAT 94
[2025-01-26 04:59] VITALS: BP 135/73; PULSE 66; RESP 15; TEMP 98; O2SAT 94
[2025-01-26 05:48] LABS: Basophils # (auto) 0.1 10 ^3/uL (0-0.2); Eosinophils # (auto) 0.3 10 ^3/uL (0-0.8); Eosinophils % (auto) 4.9 % (0.0-7.0); Hematocrit 40.4 % (36.0-46.0); Hemoglobin 13.4 g/dL (12.2-16.2); Lymphocytes # (auto) 2.2 10 ^3/uL (0.4-5.4); Lymphocytes % (auto) 32.2 % (10.0-50.0); Mean Corpuscular Hemoglobin 31.1 pg (28.0-32.0); Mean Corpuscular Hgb Conc. 33.2 g/dL (32.0-36.0); Mean Corpuscular Volume 93.5 fL (80.0-100.0); Monocytes # (auto) 0.5 10 ^3/uL (0-1.3); Monocytes % (auto) 7.9 % (0.0-12.0); Neutrophils # (auto) 3.6 10 ^3/uL (1.6-8.6); Nucleated Red Blood Cells % 0.2 %; Platelet Count (auto) 286 10^3/uL (140-450); Red Blood Cells 4.33 10^6/uL (4.0-5.20); Red Cell Distribution Width 14.5 % (11.8-14.3); White Blood Cell 6.8 10^3/uL (4.4-10.8)
[2025-01-26 08:00] VITALS: PULSE 63; RESP 16; O2SAT 95
[2025-01-26 09:00] VITALS: BP 146/97; PULSE 71; RESP 17; TEMP 98.4; O2SAT 97
--- NOTE | 2025-01-26 11:31 | DVHPN2 ---
Objective Vitals Vital Signs Date Time Temp Pulse Resp B/P (MAP) Pulse Ox O2 Delivery O2 Flow Rate FiO2 01/26/25 10:30 71 146/97 01/26/25 09:00 98.4 17 97 98.4 01/25/25 20:00 Room Air* 0 21 Intake/Output Intake and Output 01/26/25 07:00 Intake Total 2340 ml Balance 2340 ml Intake Oral 2340 ml # Voids 7 # Bowel Movements 1 Medications Current Medications Medications Dose Ordered Sig/Mat Route Start Time Stop Time Status Last Admin Dose Admin Aspirin 81 mg DAILY PO 01/25/25 10:00 01/26/25 10:27 81 MG Ceftriaxone Sodium 50 ml @ 100 mls/hr DAILY@09 IV 01/25/25 09:00 01/26/25 10:31 100 MLS/HR Metoprolol Succinate 12.5 mg DAILY PO 01/25/25 10:00 01/26/25 10:30 12.5 MG Ondansetron HCl 4 mg Q4HP PRN IV 01/24/25 23:30 Acetaminophen 650 mg Q6HP PRN PO 01/24/25 23:30 01/26/25 05:30 650 MG Nitroglycerin 0.4 mg Q5MINP PRN SL 01/24/25 23:30 Morphine Sulfate 2 mg Q30M PRN IV 01/24/25 23:30 Enoxaparin Sodium 70 mg Q12HR SC 01/25/25 22:00 01/26/25 10:26 70 MG Amiodarone HCl 200 mg Q12HR PO 01/25/25 22:00 01/26/25 10:26 200 MG Laboratory Results Laboratory Tests 01/25/25 18:09 01/26/25 04:53 Chemistry Test 01/25/25 18:09 01/26/25 04:53 Calcium Level 9.2 mg/dL (8.7-10.4) Magnesium Level 2.1 mg/dL (1.6-2.6) Urinalysis Test 01/24/25 18:30 Urine Color Colorless (Yellow) Urine Clarity Clear (Clear) Urine pH 6.0 (5.0-9.0) Urine Specific [place] 1.005 (1.001-1.035) Urine Protein Negative (Negative) Urine Ketones Trace (Negative) Urine Blood Negative /uL (Negative) Urine Nitrite Negative (Negative) Urine Bilirubin Negative (Negative) Urine Urobilinogen Normal mg/dL (Negative) Urine Leukocyte Esterase Negative /uL (Negative) Urine RBC None seen /hpf (0 - 4) Urine Microscopic WBC 2 /HPF (0-5) Urine Squamous Epithelial Cells Few /hpf (<5) Urine Bacteria None seen /hpf (None Seen) Urine Glucose Normal mg/dL (Normal) Microbiology Microbiology Date/Time Source Procedure Growth Status 01/24/25 20:20 Blood Blood Culture - Preliminary NO GROWTH AFTER 24 HOURS OF INCUBATION. Resulted EDVIN MARIEE MD Jan 26, 2025 11:31
[2025-01-26] MEDS ORDERED: ASPI1TAB20 PO (11:34)
[2025-01-26] MEDS ORDERED: METO25TA36 PO (11:34)
--- NOTE | 2025-01-26 11:36 | DVHDS2 ---
Discharge Summary Date of Admission Jan 24, 2025 at 23:16 Date of Discharge: Jan 26, 2025 Admitting Diagnosis AFib with RVR Lactic acidosis Leukocytosis Labs/Diagnostic Data: Laboratory Results Test 01/26/25 04:53 01/25/25 18:09 01/25/25 05:30 01/24/25 21:47 White Blood Count 6.8 10^3/uL (4.4-10.8) Red Blood Count 4.33 10^6/uL (4.0-5.20) Hemoglobin 13.4 g/dL (12.2-16.2) Hematocrit 40.4 % (36.0-46.0) Mean Corpuscular Volume 93.5 fL (80.0-100.0) Mean Corpuscular Hemoglobin 31.1 pg (28.0-32.0) Mean Corpuscular Hemoglobin Concent 33.2 g/dL (32.0-36.0) Red Cell Distribution Width 14.5 % (11.8-14.3) Platelet Count 286 10^3/uL (140-450) Mean Platelet Volume 8.8 fL (6.9-10.8) Neutrophils (%) (Auto) 54.0 % (37.0-80.0) Lymphocytes (%) (Auto) 32.2 % (10.0-50.0) Monocytes (%) (Auto) 7.9 % (0.0-12.0) Eosinophils (%) (Auto) 4.9 % (0.0-7.0) Basophils (%) (Auto) 1.0 % (0.0-2.0) Neutrophils # (Auto) 3.6 10 ^3/uL (1.6-8.6) Lymphocytes # (Auto) 2.2 10 ^3/uL (0.4-5.4) Monocytes # (Auto) 0.5 10 ^3/uL (0-1.3) Eosinophils # (Auto) 0.3 10 ^3/uL (0-0.8) Basophils # (Auto) 0.1 10 ^3/uL (0-0.2) Nucleated Red Blood Cells 0.2 % Magnesium Level 2.1 mg/dL (1.6-2.6) Sodium Level 142 mmol/L (136-145) Potassium Level 4.4 mmol/L (3.5-5.1) Chloride Level 111 mmol/L (98-107) Carbon Dioxide Level 23 mmol/L (20-31) Anion Gap 8 (5-15) Blood Urea Nitrogen 16 mg/dL (9-23) Creatinine 0.60 mg/dL (0.550-1.02) Glomerular Filtration Rate Calc 95 mL/min (>90) BUN/Creatinine Ratio 26.7 (10.0-20.0) Serum Glucose 102 mg/dL (74-106) Calcium Level 9.2 mg/dL (8.7-10.4) Hemoglobin A1c 5.1 % A1C (<5.7) Troponin I High Sensitivity 25 ng/L (</=34) Test 01/24/25 20:38 01/24/25 20:20 01/24/25 19:50 01/24/25 18:50 Influenza Type A Antigen Negative (Negative) Influenza Type B Antigen Negative (Negative) SARS-CoV-2 Antigen (Rapid) Negative (NEGATIVE) Lactic Acid Level 2.7 mmol/L (0.4-2.0) Triglycerides Level 70 mg/dL (< 150) Cholesterol Level 193 mg/dL (< 200) LDL Cholesterol 118 mg/dL (< 100) HDL Cholesterol 67 mg/dL (40-59) Thyroid Stimulating Hormone (TSH) 1.03 uIU/mL (0.55-4.78) Prothrombin Time 10.3 sec (9.3-11.8) Prothrombin Time INR 0.97 (0.9-1.15) Total Bilirubin 0.8 mg/dL (0.2-1.0) Aspartate Amino Transferase (AST) 19 U/L (13-40) Alanine Aminotransferase (ALT) 20 U/L (7-40) Alkaline Phosphatase 131 U/L (46-116) B-Type Natriuretic Peptide 628.74 pg/mL (0-100) Total Protein 7.7 g/dL (5.7-8.2) Albumin 5.1 g/dL (3.2-4.8) Plasma/Serum Blood Alcohol < 3.0 mg/dL (<10) Test 01/24/25 18:30 Urine Color Colorless (Yellow) Urine Clarity Clear (Clear) Urine pH 6.0 (5.0-9.0) Urine Specific Sagle 1.005 (1.001-1.035) Urine Protein Negative (Negative) Urine Ketones Trace (Negative) Urine Blood Negative /uL (Negative) Urine Nitrite Negative (Negative) Urine Bilirubin Negative (Negative) Urine Urobilinogen Normal mg/dL (Negative) Urine Leukocyte Esterase Negative /uL (Negative) Urine RBC None seen /hpf (0 - 4) Urine Microscopic WBC 2 /HPF (0-5) Urine Squamous Epithelial Cells Few /hpf (<5) Urine Bacteria None seen /hpf (None Seen) Urine Glucose Normal mg/dL (Normal) Urine Opiates Screen Neg (NEGATIVE) Urine Fentanyl Screen Neg (NEGATIVE) Urine Barbiturates Screen Neg (NEGATIVE) Urine Phencyclidine Screen Neg (NEGATIVE) Urine Amphetamines Screen Neg (NEGATIVE) Urine Benzodiazepines Screen Neg (NEGATIVE) Urine Cocaine Screen Neg (NEGATIVE) Urine Cannabinoids Screen Neg (NEGATIVE) Other Laboratory Tests 01/26/25 04:53 01/25/25 18:09 Brief Hx & Hospital Course: This is a 74 years old female come to emergency department because of generalized weakness. The patient had one day of fatigue and weak associated with heart palpitation intermittently. Patient also had substernal chest pressure, dizziness and shortness for breath. The patient was found to have atrial fibrillation with RVR. Her heart rate was 170 in emergency department. The patient was started on IV Cardizem. The patient was seen by company truck driver's and subsequently was switched to amiodarone drip. Patient able to wean off the drip and started on oral amiodarone and anticoagulant. The patient's echo showed lvef 65%. RV, normal function cannot exculde small outpouching or aneurysm of RV? seen in RV inflow view. left atirum enlarged mild. no severe valve abnormalities noted. Trace pericardial effusion noted Today the patient denied any heart palpitation. Heart rate is in within normal range. No dizziness, chest pressure, or shortness for breath. No heart palpitation. I am going to discharge her home. Advised her to follow up with company truck driver, Dr. Guerra per schedule. Follow up with primary care physician 1-2 weeks. Compliant was new regimen for atrial fibrillation. Physical exam: HEENT: Normocephalic atraumatic pupils equal react to light and accommodation. Extraocular muscles intact, conjunctiva pink, oropharynx moist, no thrush, no exudate. Lymphatic: No lymphadenopathy Cardiovascular exam: S1, S2 was heard. No murmurs, rubs, gallops Lung: Clear on auscultation bilaterally, no wheeze, rale, rhonchi. GI: Abdominal soft, nondistended, nontenderness, positive bowel sounds. Extremity: No crepitus, cyanosis, edema. Pedal pulses present bilateral. Full range of motion. Skin: Normal turgor, no rash. Psych: Alert, oriented x3. Neurology: No focal deficits, cranial nerve II to XII grossly intact. This medical document was created using an electronic medical record system with [employer] direct computerized dictation system. Although this document has been carefully reviewed, there may still be some phonetic and typographical errors. These areas are purely typographical due to imperfections of the software programs, and do not reflect any compromise in the patient's medical care. Condition at Discharge: Stable Final Diagnosis/Problems List afib with RVR, now rate controlled Elevation of Lactic acidosis Leukocytosis Discharge Disposition: Home Discharge Instruct/Medications Diet: Cardiac 2g Na,low cholest Activity: No Restrictions, As Tolerated Follow Up/Referral: pcp 1-2 weeks Medications: metoprolol XL 25mg daily aspirin 81 mg daily Discharge Statement: "Patient was advised to return to the ER or call 911 if any headaches, dizziness, shortness of breath, chest pain, abdominal pain, bleeding, fevers, or worsening of medical condition. Patient was counseled about treatment plan, medications, possible side effects, patientverbalized understanding. All questions were answered to the best of my ability. This discharge took greater then 30 minutes in planning, reviewing documentation, counseling the patient, and discussing with other team members." ASSESSMENT ASSESSMENT Assessment afib with RVR Date of Service: Jan 26, 2025 Billing Provider: EDVIN MARIEE MD Common Visit Codes: 15987-FBY/OBS DISCH DAY >30min EDVIN MARIEE MD Jan 26, 2025 11:36
[2025-01-26] MEDS ORDERED: APIX5TAB PO (12:03)
[2025-01-26] MEDS ORDERED: AMIO200T13 PO (12:03)
[2025-01-26 13:00] VITALS: BP 147/92; PULSE 75; RESP 18; TEMP 98.1; O2SAT 96
[2025-01-26 16:58] VITALS: BP 147/88; PULSE 76; RESP 17; TEMP 98.4; O2SAT 95
== END 2025-01-26 18:30 | disposition home or self-care (01) | DRG 309 ==
LOC: ER 17:45 → OVERFLOW 23:16 → TELE-EAST 01-25 09:02
PROVIDERS: ADMIT Internal Medicine; ATTEND Internal Medicine
DX: I48.91 Unspecified atrial fibrillation (principal); E87.20 Acidosis, unspecified; E78.5 Hyperlipidemia, unspecified; Z20.822 Contact with and (suspected) exposure to COVID-19; E87.6 Hypokalemia; Z79.01 Long term (current) use of anticoagulants; Z79.899 Other long term (current) drug therapy; D72.829 Elevated white blood cell count, unspecified
CPT/HCPCS: 36415; 70450; 71045; 80048; 80053; 80061; 80307; 80320; 81001; 83036; 83605; 83735; 83880; 84443; 84484; 85025; 85610; 87040; 87426; 87804; 93005; 93306; 96361; 96365; 96375; G0378